=== PATIENT | female | born 1960 ===

== ENCOUNTER 2024-05-13 16:37 | Emergency (ER) | payer MEDICARE, MEDICAID ==
[2024-05-13] MEDS ORDERED: Sodium Chloride 0.9% 10 ML Syringe FLUSH PRN (16:48)
[2024-05-13 16:57] LABS: HEMATOCRIT 39.3 % (34.3-46.0); MEAN CORPUSCULAR HEMOGLOBIN 32.4 pg (31.6-35.5); MEAN CORPUSCULAR HGB CONC 33.1 g/dL (31.6-35.5); RED BLOOD CELL COUNT 4.01 M/uL (3.77-5.24); WHITE BLOOD CELL COUNT,WBC 3.6 K/uL (3.2-11.0)
[2024-05-13 17:14] LABS: PROTHROMBIN TIME 10.4 sec (9.2-10.6)
[2024-05-13 17:18] LABS: ALANINE AMINOTRANSFERASE,ALT 28 U/L (12-78); ALBUMIN 3.6 g/dL (3.4-5.0); ALKALINE PHOSPHATASE 80 U/L (46-116); ASPARTATE AMNIOTRANSFERASE,AST 17 U/L (15-37); BILIRUBIN TOTAL 0.3 mg/dL (0.2-1.0); BLOOD UREA NITROGEN,BUN 11 mg/dL (7-18); CALCIUM 8.8 mg/dL (8.5-10.1); CARBON DIOXIDE,CO2 28 mmol/L (21-32); CHLORIDE,CL 104 mmol/L (100-108); CREATININE 0.7 mg/dL (0.6-1.0); EST CRCL DRUG DOSING (CG) 74.02 mL/min; ESTIMATED GFR 97 mL/min (>60); GLUCOSE RANDOM 156 mg/dL (74-106); POTASSIUM,K 3.4 mmol/L (3.6-5.2); PROTEIN TOTAL,TP 7.1 g/dL (6.4-8.2); SODIUM,NA 140 mmol/L (140-148)
[2024-05-13 17:21] LABS: ANION GAP 11.4 mmol/L (5.0-14.0)
[2024-05-13 18:13] LABS: AMPHETAMINES SCREEN, URINE PRESUMPTIVE POSITIVE (NEGATIVE); BARBITURATE SCREEN,URINE NEGATIVE (NEGATIVE); BENZODIAZEPINES SCREEN,URINE NEGATIVE (NEGATIVE); METHADONE SCREEN, URINE PRESUMPTIVE POSITIVE (NEGATIVE); METHAMPHETAMINES SCREEN, URINE NEGATIVE (NEGATIVE); OXYCODONE SCREEN,URINE NEGATIVE (NEGATIVE); PROPOXYPHENE SCREEN,URINE NEGATIVE (NEGATIVE); THC SCREEN,URINE 50 NG/ML NEGATIVE (NEGATIVE)
== END 2024-05-13 19:01 | disposition home or self-care (01) ==
LOC: JP.ED 16:37
DX: R53.83 Other fatigue (principal); I25.2 Old myocardial infarction; E78.00 Pure hypercholesterolemia, unspecified; F17.210 Nicotine dependence, cigarettes, uncomplicated; Z88.8 Allergy status to other drugs, medicaments and biological substances; Z79.82 Long term (current) use of aspirin; Z79.899 Other long term (current) drug therapy; Z86.73 Personal history of transient ischemic attack (TIA), and cerebral infarction without residual deficits
CPT/HCPCS: 36415; 80053; 80143; 80179; 80305-QW; 80307; 83735; 85027; 85610; 93005; 93010; 99283; 99284